=== PATIENT | female | born 1980 | race Caucasian/White ===

== ENCOUNTER → 2016-04-17 | Outpatient (CLI) | payer MEDICARE, OTHER ==
--- NOTE | 2016-04-17 11:47 | XR ---
Thoracic spine HISTORY: Pain 3 views of the thoracic spine, correlation to lumbosacral spine 15 November 2012 There is a slight spinal curvature convex left. Thoracic vertebral bodies show preserved height, alig nment, and bone mineralization. There is multilevel spondylosis. Disc spaces relatively maintained. N o evident paraspinal mass. IMPRESSION: Mild spinal curvature. Degenerative disc disease.
== END | disposition home or self-care (01) ==
LOC: RADXRMAIN 10:29
PROVIDERS: ATTEND Family Medicine
DX: M43.9 Deforming dorsopathy, unspecified (principal); M51.34 Other intervertebral disc degeneration, thoracic region
CPT/HCPCS: 72072

== ENCOUNTER 2016-09-25 15:28 | Emergency (ER) | payer MEDICARE, OTHER ==
[2016-09-25 15:48] VITALS: RESP 18
[2016-09-25] MEDS ORDERED: AMOXIC-POT CLAV 875-125MG 1 EACH TAB PO STA (16:08)
[2016-09-25] MEDS ORDERED: DIPH,PERTUS(ACELL)TETVAC-LF 0.5 ML VIAL IM ONE (16:09)
--- NOTE | 2016-09-25 16:22 | ED ---
Animal Bite HPI - General Chief Complaint: Animal Bite Stated Complaint: Cat Bite Time Seen by Provider: 09/25/16 16:08 Source: patient Mode of arrival: ambulatory Limitations: no limitations - History of Present Illness Initial Comments: Patient is a right-handed 36-year-old female presenting to the emergency department with complaints of cat bite to her left hand. Onset of injury 2 hours prior to arrival. Patient states she was playing with her cat when it bit and scratched her. Complaint: animal bite Onset/Timin -: hour(s) Left: Hand Animal: cat Description: household pet, immunizations UTD, appeared well Mechanism: bite, scratch Pain Description: burning Severity scale (1-10): 4 Context: playing with animal Associated Symptoms: bleeding Treatments Prior to Arrival: other (No treatment prior to arrival) - Related Data Patient Tetanus UTD: No Home Medications Medication Instructions Recorded Confirmed Cetirizine HCl [Zyrtec] 10 mg PO HS 09/25/16 09/25/16 Ibuprofen 800 mg PO Q8H PRN 09/25/16 09/25/16 Ziprasidone [Geodon] 80 mg PO HS 09/25/16 09/25/16 buPROPion HCL [Wellbutrin XL] 300 mg PO QAM 09/25/16 09/25/16 Previous Rx's Medication Instructions Recorded Amoxic-Pot Clav 875-125Mg 1 tab PO Q12HR #20 tablet 09/25/16 [Augmentin 875-125] Allergies Allergy/AdvReac Type Severity Reaction Status Date / Time codeine Allergy Rash/Hives Verified 09/25/16 15:48 Review of Systems ROS Statement: Those systems with pertinent positive or pertinent negative responses have been documented in the HPI. ROS Other: All systems not noted in ROS Statement are negative. Past Medical History Past Medical History: No Reported History Past Surgical History: Orthopedic Surgery Additional Past Surgical History / Comment(s): abd knee Past Psychological History: Depression Smoking Status: Current every day smoker Past Alcohol Use History: None Reported Past Drug Use History: Marijuana General Exam Limitations: no limitations General appearance: alert, in no apparent distress Head exam: Present: atraumatic, normocephalic, normal inspection Eye exam: Present: normal appearance Respiratory exam: Present: normal lung sounds bilaterally. Absent: respiratory distress, wheezes, rales, rhonchi Cardiovascular Exam: Present: regular rate, normal rhythm, tachycardia, normal heart sounds. Absent: systolic murmur GI/Abdominal exam: Present: soft, normal bowel sounds. Absent: tenderness Left Shoulder Exam: Present: normal inspection, full ROM. Absent: tenderness, swelling Upper Arm exam: Present: normal inspection, full ROM. Absent: tenderness, swelling Elbow exam: Present: normal inspection, full ROM. Absent: tenderness, swelling Forearm Wrist exam: Present: normal inspection, full ROM. Absent: tenderness, swelling Hand Wrist exam: Present: full ROM, tenderness, swelling, other (Puncture wound noted to dorsal proximal right thumb and dorsal right hand proximal to third digit. 3 scratches noted to palmar aspect of left hand) Neurological exam: Present: alert, oriented X3, normal gait, other (No focal deficits noted) Psychiatric exam: Present: normal affect, normal mood Skin exam: Present: warm, dry, normal color Course Vital Signs 09/25/16 09/25/16 15:44 17:03 Temperature 98.3 F 98.2 F Pulse Rate 105 H 79 Respiratory 18 18 Rate Blood Pressure 121/80 119/75 O2 Sat by Pulse 97 100 Oximetry Procedures - Procedures Initial comment: Puncture wounds and abrasions irrigated extensively with sterile water. Medical Decision Making - Medical Decision Making Cat bite of left hand. X-ray of left hand with no acute fracture, subluxation, or dislocation seen. No soft tissue gas identified. Patient started on Augmentin and tetanus immunization updated. Patient instructed to follow-up with primary care physician for wound check in 24 hours. Patient instructed to return to the emergency department with any new or worsening symptoms. Patient agrees to treatment plan. Discharge instructions and return parameters reviewed. - Radiology Data Radiology results: report reviewed X-ray left hand: No acute fracture, subluxation, or dislocation seen. No soft tissue gas identified. Impression: No acute osseous abnormality seen. Disposition Clinical Impression: Cat bite Disposition: HOME SELF-CARE Condition: Good Instructions: Animal Bite (ED) Additional Instructions: Finish oral antibiotic as prescribed. Follow-up with primary care physician in 24 hours for wound check. Please return to the emergency department with signs and symptoms of infection such as increased pain, swelling, red streaks, fevers. Prescriptions: Amoxic-Pot Clav 875-125Mg [Augmentin 875-125] 1 tab PO Q12HR #20 tablet Referrals: Ramiro Conway DO [Primary Care Provider] - 1-2 days Time of Disposition: 17:00
--- NOTE | 2016-09-25 16:55 | XR ---
EXAMINATION TYPE: XR hand complete LT DATE OF EXAM: 09/25/2016 COMPARISON: NONE HISTORY: 36-year-old female, laceration from cat bite, pain TECHNIQUE: 3 views FINDINGS: No acute fracture, subluxation, or dislocation seen. No soft tissue gas identified. IMPRESSION: No acute osseous abnormality seen.
[2016-09-25 17:04] VITALS: BP 119/75; PULSE 79; TEMP 98.2
== END 2016-09-25 17:04 | disposition home or self-care (01) ==
LOC: EC 15:28
DX: S61.432A Puncture wound without foreign body of left hand, initial encounter (principal); F32.9 Major depressive disorder, single episode, unspecified; F17.200 Nicotine dependence, unspecified, uncomplicated; Z23 Encounter for immunization; Z79.899 Other long term (current) drug therapy; Z88.5 Allergy status to narcotic agent; W55.01XA Bitten by cat, initial encounter; Y93.89 Activity, other specified
CPT/HCPCS: 90471; 90715; 99283

== ENCOUNTER → 2019-04-25 | Outpatient (CLI) | payer MEDICARE, OTHER ==
--- NOTE | 2019-04-25 13:28 | XR ---
EXAMINATION TYPE: XR chest 2V DATE OF EXAM: 04/25/2019 COMPARISON: Prior chest x-ray 06/09/2012 HISTORY: Chronic cough TECHNIQUE: Frontal and lateral views of the chest are obtained. FINDINGS: There is no focal air space opacity, pleural effusion, or pneumothorax seen. The cardiac silhouette size is within normal limits. The osseous structures are intact. IMPRESSION: No acute cardiopulmonary process.
== END | disposition home or self-care (01) ==
LOC: RADXRMAIN 12:59
PROVIDERS: ATTEND Family Medicine
DX: F17.210 Nicotine dependence, cigarettes, uncomplicated (principal)
CPT/HCPCS: 71046

== ENCOUNTER → 2019-04-25 | Outpatient (CLI) | payer MEDICARE, OTHER ==
[2019-04-25 18:34] LABS: Chol/HDL Ratio 6.35; LDL Cholesterol,Calculated 137.8 mg/dL (0.0-131.0); VLDL Calculation 28.2 mg/dL (5.00-40.00)
[2019-04-25 18:42] LABS: T4, Free (Free Thyroxine) 1.2 ng/dL (0.80-1.80)
[2019-04-25 20:00] LABS: Hemoglobin A1C 5.4 % (4.0-6.0)
== END | disposition home or self-care (01) ==
LOC: LABWHC1 13:12
PROVIDERS: ATTEND Psychiatry & Neurology Psychiatry
DX: Z51.81 Encounter for therapeutic drug level monitoring (principal); Z79.899 Other long term (current) drug therapy
CPT/HCPCS: 36415; 80061; 82947; 83036; 84439; 84443

== ENCOUNTER → 2020-12-14 | Outpatient (CLI) | payer MEDICARE, OTHER ==
--- NOTE | 2020-12-14 14:46 | CT ---
EXAMINATION TYPE: CT brain wo con DATE OF EXAM: 12/14/2020 COMPARISON: None INDICATION: Post concussional syndrome DLP: 1036 mGycm, Automated exposure control for dose reduction was used. CONTRAST: None CT of the brain is performed utilizing 3 mm thick sections through the posterior fossa and 3 mm thick sections through the remaining calvarium. Study is performed within 24 hours of arrival to the hosp [facility]. No abnormal hyperdensity is present to suggest an acute intracranial hemorrhage. No mass lesion is evident. No acute infarcts are evident. Ventricles and sulci are appropriate for the patient age. Paranasal sinuses and mastoid air cells within the [id number] are clear. IMPRESSIONS: 1. Normal CT Brain
--- NOTE | 2020-12-14 15:44 | XR ---
Thoracic spine HISTORY: R 50, trauma one month prior, pain Correlation to prior exam 04/17/2016 There is multilevel spondylosis. Thoracic vertebral bodies show preserved height, alignment, and bone mineralization. Loss of disc height present at intervertebral levels in the midthoracic spine level. IMPRESSION: No fracture or subluxation is evident. Degenerative disc disease.
--- NOTE | 2020-12-14 15:46 | XR ---
Local spine HISTORY: R 50, trauma one month prior, pain 5 views of the cervical spine There is no evident foraminal encroachment on oblique views. C7 and T1 are not well seen. Cervical ve rtebral bodies show preserved height and alignment as visualized. Disc spaces and prevertebral soft t issues are normal. impression: Exam is limited due to patient body habitus. No fracture or subluxation is evident in the visualized portions of the cervical spine.
--- NOTE | 2020-12-14 15:51 | XR ---
Right RIBS HISTORY: R 52, trauma one month prior, pain 4 views of the right ribs, correlation to chest x-ray 04/25/2019 There is no evident airspace disease or pneumothorax. No evident effusion. Angulated appearance of a mid rib anteriorly at approximately the C6 level is noted on one of the views. Lower ribs somewhat ob scured by soft tissue. IMPRESSION: Difficult to exclude a nondisplaced fracture, bone scan could be performed for better new luation as indicated.
--- NOTE | 2020-12-14 16:00 | XR ---
Left foot HISTORY: Left foot pain, trauma one month prior 3 views the left foot Soft tissue swelling is present. Bone mineralization, joint spaces and alignment are maintained. Ther e is an enthesophyte at insertion of Achilles tendon. There may be some focal erosions. Some arthropa thy changes are present at the intertarsal joints. IMPRESSION: No evident fracture or dislocation.
== END | disposition home or self-care (01) ==
LOC: RADCTMAIN 13:02
PROVIDERS: ATTEND Family Medicine
DX: F07.81 Postconcussional syndrome (principal); M51.34 Other intervertebral disc degeneration, thoracic region; M54.2 Cervicalgia; R07.81 Pleurodynia; M79.89 Other specified soft tissue disorders
CPT/HCPCS: 70450; 72050; 72072

== ENCOUNTER → 2021-01-16 | Outpatient (CLI) | payer MEDICARE, OTHER ==
--- NOTE | 2021-01-16 14:17 | NM ---
EXAMINATION TYPE: NM bone/joint limited DATE OF EXAM: 01/16/2021 COMPARISON: Right RIBS 12/14/2020 HISTORY: Right rib pain TECHNIQUE: After the intravenous administration of 24.2 mCi Tc 99m MDP. Images acquired 3 hours pos t injection. Multiple views of the ribs are submitted. There is abnormal uptake involving the right 6th rib laterally consistent with fracture. Tissue uptak e is normal. IMPRESSION: Right sixth rib fracture
== END | disposition home or self-care (01) ==
LOC: RADNMMAIN 09:28
PROVIDERS: ATTEND Family Medicine
DX: S22.31XA Fracture of one rib, right side, initial encounter for closed fracture (principal)
CPT/HCPCS: 78300; A9503

== ENCOUNTER → 2021-05-23 | Outpatient (CLI) | payer MEDICARE, OTHER ==
--- NOTE | 2021-05-23 12:02 | USB ---
Reason for exam: clinical finding. Physical Findings: Nurse Summary: Patient complains of right breast intermittent pain (nurse mj). US Breast BILAT Right complete breast ultrasound includes all four quadrants, the retroareolar region and axilla. Finding demonstrates a 1.0 x 0.8 x 0.5cm cystic cluster at 12 o'clock and a 0.6 x 0.6 x 0.3cm cystic lesion at 11 o'clock. No suspicious solid mass or axillar CAD. Left complete breast ultrasound includes all four quadrants, the retroareolar region and axilla. Finding demonstrates a 1.0 x 1.2 x 0.4cm cystic cluster at 12 o'clock, mammographic correlate and a 0.9 x 0.9 x 0.3cm cystic lesion at 10 o'clock. Ongoing short interval follow up mammogram. These results were verbally communicated with the patient and result sheet given to the patient on 05/23/21. ASSESSMENT: Probably benign, BI-RAD 3 RECOMMENDATION: Follow-up diagnostic mammogram of both breasts in 4 months. Manage on a clinical basis with regard to breast pain.
== END | disposition home or self-care (01) ==
LOC: RADUSWWP 09:41
PROVIDERS: ATTEND Family Medicine
DX: N63.20 Unspecified lump in the left breast, unspecified quadrant (principal)